=== PATIENT | male | born 1955 | race Caucasian/White ===

== ENCOUNTER 2022-10-02 20:59 | Emergency (ER) | payer MEDICARE, OTHER ==
[~2022-10-02] VITALS: Ht 175.3 cm; Wt 122.5 kg
[~2022-10-02 20:59] MED LIST: CLOP75TA15 PO; HEART MEDICATION PO; NEBI20TA2 PO; NIAC1000 PO; NTG SL; ROSU20TA2 PO
--- NOTE | 2022-10-02 22:09 | NUR ---
Dr Hameed at bedside MSE in progress
--- NOTE | 2022-10-02 22:45 | NUR ---
Patient discharged to home in stable condition. Written and verbal after care instructions given. Patient verbalizes understanding of instructions. Stressed follow up or return to ER for worsening s/s. Patient is a/ox4, NAD noted. patient ambulated with steady gait
[2022-10-02 23:01] VITALS: BP 135/76
== END 2022-10-02 23:02 | disposition home or self-care (01) ==
LOC: ER 20:59
DX: S61.011A Laceration without foreign body of right thumb without damage to nail, initial encounter (principal); I10 Essential (primary) hypertension; Z79.899 Other long term (current) drug therapy; W26.0XXA Contact with knife, initial encounter; Y93.89 Activity, other specified; Y92.89 Other specified places as the place of occurrence of the external cause; Y99.8 Other external cause status
CPT/HCPCS: A4663